=== PATIENT | female | born 1975 | race Caucasian/White ===

== ENCOUNTER 2016-11-14 17:04 | Emergency (ER) | payer MEDICAID ==
[2016-11-14 17:19] VITALS: BP 135/65; PULSE 90; RESP 16; TEMP 98.1; O2SAT 95
[2016-11-14] MEDS ORDERED: TDAP ADULT 0.5 ML INJ (BOOSTRIX) IM ONE (17:20)
[2016-11-14] MEDS ORDERED: LETS SOLN TOPICAL 1 EA SYR TP ONE ×2 (17:44→17:47)
--- NOTE | 2016-11-14 18:21 | UCPHY ---
H & P Time Seen by Provider: 11/14/16 17:30 Patient Type: Established HPI/ROS: This patient slipped with a knife at home sustaining a wound to the dorsum of her left 3rd finger shortly prior to arrival with moderate bleeding and pain. The bleeding slowed with direct pressure and she notes no other exacerbating factors. ROS: No numbness or tingling. No difficulty moving the affected finger. 5 point ROS is otherwise negative. Past Medical/Surgical History: Obesity. Immunizations up-to-date. Smoking Status: Former smoker Physical Exam: Physical Exam Vital signs are normal. General: No acute distress Eyes: Pupils equal and react to light. Extraocular motions are intact. Cardiac: Brisk capillary refill is intact throughout. Skin: No rash or pallor. There is a 1 cm by 2 mm skin avulsion to the dorsum of left 3rd finger with minimal bleeding. This is not full thickness. Neuro: Alert and oriented x3 with no sensorimotor deficits. Constitutional: Initial Vital Signs Temperature (C) 36.7 C 11/14/16 17:14 Heart Rate 90 11/14/16 17:14 Respiratory Rate 16 11/14/16 17:14 Blood Pressure 135/65 H 11/14/16 17:14 O2 Sat (%) 95 11/14/16 17:14 Allergies/Adverse Reactions: EAR DROP Allergy (Unknown, Uncoded 11/16/16 15:35) bleach Allergy (Uncoded 11/16/16 15:35) powder in latex Allergy (Uncoded 11/16/16 15:35) Home Medications: Medication Instructions Recorded Oxybutynin Chloride 02/14/15 MDM/Departure - MDM Medications Given: Discontinued Medications Diphtheria/Tetanus/Acell Pertussis (Boostrix) 0.5 ml IM .ONCE ONE Stop: 11/14/16 17:21 Last Admin: 11/14/16 17:35 Dose: 0.5 ml Tetracaine/Epinephrine/Lidocaine (Lets Soln Topical) 1 ea TP EDNOW ONE Stop: 11/14/16 17:48 Last Admin: 11/14/16 17:48 Dose: 1 ea ED Course/Re-evaluation: Topical lighted gel followed by cleaning by our tech, Surgicel dressing applied with hemostasis. We counseled regarding wound care. Discussion: Uncomplicated [id number] skin avulsion - Depart Disposition: Home, Routine, Self-Care Condition: Good Instructions: Skin Avulsion (ED) Additional Instructions: Diagnosis: Skin avulsion to finger Plan: Keep the dressing in place for the next 2 days. After 2 days, soak the finger and half-strength peroxide/will warm water and gently remove the dressing. Then clean daily, apply a Band-Aid and splint until it is healed. Return if you develop redness, concerns for infection, continued bleeding or other concerns Referrals: Horacio Clark, [Primary Care Provider] - As per Instructions - PQRS PQRS Measurement: NA
== END 2016-11-14 18:31 | disposition home or self-care (01) ==
LOC: CED 17:04
PROC: 2W2KX4Z Dressing of Left Finger using Bandage (ICD-10-PCS; principal; 2016-11-14)
DX: S61.213A Laceration without foreign body of left middle finger without damage to nail, initial encounter (principal); W26.0XXA Contact with knife, initial encounter; Y92.019 Unspecified place in single-family (private) house as the place of occurrence of the external cause; Z23 Encounter for immunization
CPT/HCPCS: G0463-PO

== ENCOUNTER 2016-11-16 15:22 | Emergency (ER) | payer MEDICAID ==
[2016-11-16 15:53] VITALS: BP 131/80; PULSE 100; RESP 12; TEMP 99.3; O2SAT 95
--- NOTE | 2016-11-16 16:58 | UCPHY ---
H & P Time Seen by Provider: 11/16/16 16:19 Patient Type: Established HPI/ROS: This patient returns for wound check of her finger tip avulsion. She was here 2 days ago from this wound obtain from a knife slipped. She noticed some slightly foul-smell to the dressing was concerned that she might have a finger infection. She notes no other associated symptoms denies any significant pain from the finger. ROS: No fevers. No chills. No vomiting. No other associated symptoms and 5 point ROS is otherwise negative Past Medical/Surgical History: Obesity Smoking Status: Former smoker Physical Exam: Physical Exam Vital signs are normal. General: No acute distress Eyes: Pupils equal and react to light. Extraocular motions are intact. Lungs: No respiratory distress. Cardiac: Brisk capillary refill is intact throughout. Skin: No rash or pallor. Left 3rd finger: Minor skin avulsion to the dorsum of the finger distal phalanx with no bleeding, erythema, discharge or other evidence of wound infection. Neuro: Alert and oriented x3 with no sensorimotor deficits. Constitutional: Initial Vital Signs Temperature (C) 37.4 C 11/16/16 15:48 Heart Rate 100 11/16/16 15:48 Respiratory Rate 12 11/16/16 15:48 Blood Pressure 131/80 H 11/16/16 15:48 O2 Sat (%) 95 11/16/16 15:48 O2 Delivery Mode Room Air Allergies/Adverse Reactions: EAR DROP Allergy (Unknown, Uncoded 11/16/16 15:35) bleach Allergy (Uncoded 11/16/16 15:35) powder in latex Allergy (Uncoded 11/16/16 15:35) Home Medications: Medication Instructions Recorded Oxybutynin Chloride 02/14/15 MDM/Departure - MDM ED Course/Re-evaluation: Her wound appears well. I counseled her regarding this. Wound is cleaned and bandage applied. - Depart Disposition: Home, Routine, Self-Care Clinical Impression: Visit for wound check Condition: Good Instructions: Acute Wounds (ED) Additional Instructions: Diagnosis: Wound check Your finger appears well. Plan: Clean the wound daily with warm soapy water. Then apply a Band-Aid more stack splint reactive. However take the Band-Aid off departed get some air to the finger to. Return for any significant redness, discharge or other concerns. Referrals: Horacio Clark, DO [Primary Care Provider] - As per Instructions - PQRS PQRS Measurement: NA
== END 2016-11-16 17:09 | disposition home or self-care (01) ==
LOC: CED 15:22
DX: S61.213D Laceration without foreign body of left middle finger without damage to nail, subsequent encounter (principal); Z48.01 Encounter for change or removal of surgical wound dressing
CPT/HCPCS: 99213-PO; G0463-PO

== ENCOUNTER 2017-10-22 14:57 | Emergency (ER) | payer MEDICAID ==
[2017-10-22 15:24] VITALS: RESP 16; TEMP 98.6; O2SAT 97
[2017-10-22] MEDS ORDERED: IBUPROFEN 200 MG TAB PO ONE (15:26)
--- NOTE | 2017-10-22 16:25 | EDPHY ---
H & P Time Seen by Provider: 10/22/17 15:07 HPI/ROS: CHIEF COMPLAINT: Right knee pain History by patient HISTORY OF PRESENT ILLNESS: 42-year-old woman presents complaining of pain in her right knee after jumping on trampoline and feeling like she hit too quickly in her knee slid out from her and went into different directions. She thinks possibly her patella dislocated and weak located but she is unclear about this. She says she feels like the top after her leg went 1 way and the bottom half when another way. She thinks he may have been a pop she had. She denies her knee swelling up like a balloon. She was unable to weight bear afterwards because the pain and a feeling like her knee was going to give out. She denies any other pain or injury. Happened 30 min prior to arrival and she has not taken anything for the pain yet. REVIEW OF SYSTEMS: As in HPI, and all other systems reviewed and are negative Smoking Status: Former smoker Physical Exam: General Appearance: Alert and no distress. Morbidly obese Head: Normocephalic, atraumatic Eyes: Pupils equal and round no injection. Extraocular movements are intact. Musculoskeletal: Neck is supple and nontender. Extremities: Right knee with minimal swelling, no patellar tenderness or apprehension, full range of motion with pain, mild tenderness near anterior tibial tuberosity. No obvious ligamental laxity but exam limited by patient's body habitus and swelling. Minimal tenderness with valgus and varus stress. No medial joint line tenderness. No lateral joint line tenderness. Patient is able to fully extend knee and hip against resistance DP pulses 2+ and equal bilaterally, distal sensations intact, positive abrasion near right ankle, no ankle swelling or deformity or tenderness and full range of motion of ankle, mild tenderness to the posterior knee Skin: No rashes or lesions except as described above. Constitutional: Initial Vital Signs Temperature (C) 37.0 C 10/22/17 15:19 Heart Rate 87 10/22/17 15:19 Respiratory Rate 16 10/22/17 15:19 Blood Pressure 120/99 H 10/22/17 15:19 O2 Sat (%) 97 10/22/17 15:19 O2 Delivery Mode Room Air Allergies/Adverse Reactions: EAR DROP Allergy (Unknown, Uncoded 10/22/17 15:19) bleach Allergy (Uncoded 10/22/17 15:19) powder in latex Allergy (Uncoded 10/22/17 15:19) Home Medications: Medication Instructions Recorded Oxybutynin Chloride 02/14/15 MDM/Departure - MDM Imaging Results: Imaging Impressions Knee X-Ray 10/22/17 15:25 Impression: Negative right knee radiographs. Medications Given: Discontinued Medications Ibuprofen (Motrin) 600 mg PO EDNOW ONE Stop: 10/22/17 15:27 Last Admin: 10/22/17 15:29 Dose: 600 mg ED Course/Re-evaluation: 42-year-old woman presents complaining of right knee pain after falling on a trampoline. X-ray shows no evidence of fracture. Patient was unsure she essentially dislocated her patella but patella apprehension test is negative. Patient may have a ligamentous tear. We will place her in a knee immobilizer and have her follow up with primary care physician next week for re-evaluation. Patient was given ibuprofen and ice in the emergency department for pain.. - Depart Disposition: Home, Routine, Self-Care Clinical Impression: Knee injury Qualifiers: Encounter type: initial encounter Laterality: right Qualified Code(s): S89.91XA - Unspecified injury of right lower leg, initial encounter Condition: Good Instructions: Knee Immobilizer (ED) Additional Instructions: You were seen by Dr. Arline Harrison today. Wear the knee brace as needed. You may weight bear as tolerated. Ice her knee for 15-20 minutes every hour for the next 24 hr and keep it elevated as much as possible above the level of the heart. Take ibuprofen 600 mg 4 times daily while awake for pain and add Tylenol 1000 mg every 4 hr as needed while awake for pain. Please follow up with the primary care physician or orthopedics next week to have the knee re-evaluated. Return for any worsening or new concerns. Referrals: Horacio Clark DO [Primary Care Provider] - As per Instructions
[2017-10-22 17:36] VITALS: BP 118/88; PULSE 82
== END 2017-10-22 16:30 | disposition home or self-care (01) ==
LOC: CED 14:57
DX: S89.91XA Unspecified injury of right lower leg, initial encounter (principal); Z87.891 Personal history of nicotine dependence; W22.8XXA Striking against or struck by other objects, initial encounter; Y99.8 Other external cause status; Y93.44 Activity, trampolining
CPT/HCPCS: 73564-PO; L1830

== ENCOUNTER → 2017-12-04 | Outpatient (CLI) | payer MEDICAID | LOC: CIMAGING 10:56 | PROVIDERS: ATTEND Family Medicine | DX: M79.604 Pain in right leg (principal); R60.0 Localized edema | CPT/HCPCS: 93971-PO ==

== ENCOUNTER → 2018-01-01 | Outpatient (CLI) | payer MEDICAID | LOC: CIMAGING 16:31 | PROVIDERS: ATTEND Family Medicine | DX: M25.561 Pain in right knee (principal) | CPT/HCPCS: 73562-PO ==

== ENCOUNTER → 2018-01-29 | Outpatient (CLI) | payer MEDICAID | LOC: FIMAGING 12:13 | PROVIDERS: ATTEND Family Medicine | DX: S83.511A Sprain of anterior cruciate ligament of right knee, initial encounter (principal); S83.241A Other tear of medial meniscus, current injury, right knee, initial encounter; M23.91 Unspecified internal derangement of right knee ==